=== PATIENT | male | born 1945 | race Caucasian/White ===

== ENCOUNTER 2023-08-03 00:49 | Observation (INO) | payer MEDICARE, OTHER, SELFPAY ==
[2023-08-03 00:56] VITALS: BP 155/91; PULSE 65; TEMP 36.4; O2SAT 100; BMI 25.8
--- NOTE | 2023-08-03 01:17 | ECG_ITS ---
[facility] Test Date: 2023-08-03 Pat Name: CATHY MENDEZ Department: Room: [facility] [place] Gender: Male [employer] Dispatcher: : 1945 Requested By: DAOVN CLARKE Order Number: [id number] Reading MD: RODNEY KEARNEY Measurements Intervals [place] Rate: 63 P: 16 [place]: 198 QRS: 18 QRSD: 100 T: 55 QT: 402 QTc: 410 Interpretive Statements 1100 Sinus rhythm 9110 normal ECG Compared to ECG 04/03/2018 13:10:39 No significant changes Electronically Signed On 08-04-2023 7:30:08 EDT by RODNEY KEARNEY
[2023-08-03 01:20] VITALS: PULSE 62
--- NOTE | 2023-08-03 01:25 | ED.DIZZY1 ---
HPI - Dizziness General Chief Complaint: Dizziness Stated Complaint: DIZZY Time Seen by Provider: 08/03/23 01:22 Source: patient and family Mode of arrival: walk-in Limitations: no limitations History of Present Illness HPI Narrative: past history of vertigo. last episode about 2 years ago. Tonight watching TV and it started spinning .spinning associated with nausea. No headache, ear pain or fever. No numbness or ext. weakness. Still feels somewhat dizzy now Related Data Home Medications ?Medication ?Instructions ?Recorded ?Confirmed valsartan 80 mg tablet 80 mg PO DAILY 08/03/23 08/03/23 Allergies Allergy/AdvReac Type Severity Reaction Status Date / Time No Known Drug Allergies Allergy Verified 08/03/23 01:01 Review of Systems ROS Status of ROS 10 or more systems reviewed and unremarkable except as noted in history and below Exam Constitutional Vital Signs, click to edit/add: Last Vital Signs Temp 97.5 F L 08/03/23 00:56 Pulse 63 08/03/23 04:04 Resp 24 H 08/03/23 04:04 BP 135/79 08/03/23 04:04 Pulse Ox 95 08/03/23 04:04 O2 Del Method Room Air 08/03/23 04:04 Common normals: no apparent distress, average body habitus, oriented x3, no limitations, healthy appearing, alert and well nourished [facility] Common normals: normocephalic and head/scalp atraumatic Eye Common normals: PERRL, EOMs intact bilaterally and conjunctivae normal Respiratory Common normals: normal respiratory effort, no retractions, no use of accessory muscles and clear to auscultation bilaterally Cardio Common normals: regular rate, regular rhythm, S1 normal heart sound and S2 normal heart sound GI Common normals: Normal to inspection, nondistended, normoactive bowel sounds present, soft to palpation and non-tender Extremity Common normals: normal to inspection and full ROM Neuro Common normals: oriented x3, CN's II-XII intact bilaterally, moves all extremities, no focal motor deficits and no sensory deficits noted Psych Appearance: grossly normal Course Vital Signs Vital signs: Vital Signs Temperature 97.5 F L 08/03/23 00:56 Pulse Rate 65 08/03/23 00:56 Respiratory Rate 18 08/03/23 00:56 Blood Pressure 155/91 H 08/03/23 00:56 Pulse Oximetry 100 08/03/23 00:56 Oxygen Delivery Method Room Air 08/03/23 00:56 Temperature 97.5 F L 08/03/23 00:56 Pulse Rate 63 08/03/23 04:04 Respiratory Rate 24 H 08/03/23 04:04 Blood Pressure 135/79 08/03/23 04:04 Pulse Oximetry 95 08/03/23 04:04 Oxygen Delivery Method Room Air 08/03/23 04:04 MDM - Dizziness MDM Narrative Medical decision making narrative: patient presents with acute vertiginous symptoms. Treated with solumedrol, antivert and phenergan without significant improvement. Dizziness improved some but remained nauseated. Zofran added without benefit. Given dose of Ativan and CT brain ordered and demonstrated left mastoid effusion. Patient is feeling better but still a little dizzy. Informed of the CT results. Hospitalist contacted and patient admitted to hospitalist serivce Lab Data Labs: Lab Results 08/03/23 Range/Units 01:12 WBC 6.9 (4.0-11.0) 10^3/uL RBC 4.34 L (4.70-6.10) 10^6/uL Hgb 13.8 L (14.0-18.0) g/dL Hct 41.3 L (42.0-54.0) % MCV 95.2 H (80.0-94.0) fL MCH 31.8 (25.9-34.0) pg MCHC 33.4 (29.9-35.2) g/dL RDW 13.0 (11.0-15.0) % Plt Count 168 (150-450) 10^3/uL MPV 11.0 (9.5-13.5) fL Neut % (Auto) 71.0 (43.0-75.0) % Lymph % (Auto) 18.7 L (20.5-60.0) % [place] % (Auto) 7.8 (1.7-12.0) % Eos % (Auto) 1.6 (0.9-7.0) % Baso % (Auto) 0.6 (0.2-2.0) % Neut # (Auto) 4.9 (1.4-6.5) 10^3/uL Lymph # (Auto) 1.3 (1.2-3.8) 10^3/uL [place] # (Auto) 0.5 (0.3-0.8) 10^3/uL Eos # (Auto) 0.1 (0.0-0.7) 10^3/uL Baso # (Auto) 0.0 (0.0-0.1) 10^3/uL Abs Immat Gran (auto) 0.02 (0.00-0.03) 10^3/uL Imm/Tot Granulo (auto) 0.3 (0.0-0.5) % Sodium 141 (136-145) mmol/L Potassium 3.5 (3.5-5.1) mmol/L Chloride 106 (98-107) mmol/L Carbon Dioxide 29.1 (21.0-32.0) mmol/L Anion Gap 9.4 BUN 29.0 H (7.0-18.0) mg/dL Creatinine 1.10 (0.70-1.30) mg/dL Est GFR ( Amer) >60 (>=60) Est GFR (Non-Af Amer) >60 (>=60) BUN/Creatinine Ratio 26.4 Glucose 112 H (74-106) mg/dL Calcium 9.1 (8.5-10.1) mg/dL Total Bilirubin 0.4 (0.2-1.0) mg/dL AST 13 L (15-37) U/L ALT 20 (16-63) U/L Alkaline Phosphatase 50 (46-116) U/L Total Protein 6.9 (6.4-8.2) g/dL Albumin 4.0 (3.4-5.0) g/dL Globulin 2.9 g/dL Albumin/Globulin Ratio 1.[address] scan - head: Radiologist's impression: ITS Impressions Head CT 08/03/23 03:32 IMPRESSION: 1. No acute intracranial abnormality. 2. Fairly large left mastoid effusion. Electronically authenticated by: KELLY ROSARIO Date: 08/03/2023 04:11 Discharge Plan Discharge Chief Complaint: Dizziness Clinical Impression: Acute mastoiditis of left side, Vertigo Patient Disposition: Admitted as Observation
[2023-08-03 01:35] LABS: Basophils Percent Auto 0.6 % (0.2-2.0); Eosinophils Absolute Auto 0.1 10^3/uL (0.0-0.7); Eosinophils Percent Auto 1.6 % (0.9-7.0); Hematocrit 41.3 % (42.0-54.0); Hemoglobin 13.8 g/dL (14.0-18.0); Immature Granulocytes Abs Auto 0.02 10^3/uL (0.00-0.03); Immature Granulocytes Pct Auto 0.3 % (0.0-0.5); Lymphocytes Absolute Auto 1.3 10^3/uL (1.2-3.8); Lymphocytes Percent Auto 18.7 % (20.5-60.0); Mean Corpuscular HGB Conc 33.4 g/dL (29.9-35.2); Mean Corpuscular Hemoglobin 31.8 pg (25.9-34.0); Mean Corpuscular Volume 95.2 fL (80.0-94.0); Monocytes Absolute Auto 0.5 10^3/uL (0.3-0.8); Monocytes Percent Auto 7.8 % (1.7-12.0); Neutrophils Absolute Auto 4.9 10^3/uL (1.4-6.5); Platelet Count 168 10^3/uL (150-450); Red Blood Count 4.34 10^6/uL (4.70-6.10); White Blood Count 6.9 10^3/uL (4.0-11.0)
[2023-08-03] MEDS: METHYLPREDNISOLONE SOD SUCC PF 125 MG/2 ML VIAL IVP (01:44)
[2023-08-03] MEDS: MECLIZINE HCL 12.5 MG TABLET 25 MG PO (01:44)
[2023-08-03 01:46] LABS: Alanine Aminotransferase 20 U/L (16-63); Albumin Globulin Ratio 1.4; Alkaline Phosphatase 50 U/L (46-116); Anion Gap 9.4; Aspartate Amino Transferase 13 U/L (15-37); BUN Creatinine Ratio 26.4; Bilirubin Total 0.4 mg/dL (0.2-1.0); Calcium 9.1 mg/dL (8.5-10.1); Carbon Dioxide 29.1 mmol/L (21.0-32.0); Chloride 106 mmol/L (98-107); Estimated GFR (African America >60 (>=60); Estimated GFR (Non-African Ame >60 (>=60); Globulin 2.9 g/dL; Glucose 112 mg/dL (74-106); Potassium 3.5 mmol/L (3.5-5.1); Sodium 141 mmol/L (136-145); Total Protein 6.9 g/dL (6.4-8.2)
[2023-08-03] MEDS: PROMETHAZINE HCL 12.5 MG in 0.9 % SODIUM CHLORIDE 50 ML 202 MG IV (02:17)
[2023-08-03 02:33] VITALS: BP 164/79; PULSE 58; O2SAT 100
--- NOTE | 2023-08-03 03:32 | CT_ITS ---
The [address] [address] Patient Name: CATHY MENDEZ MRN: [id number] date: 1945 Sex: M Assigned Patient Location: ER Current Patient Location: ER Accession/Order Number: [id number] Exam Date: 08/03/2023 03:42 Report Date: 08/03/2023 04:11 At the request of: JOYCE HORAN Procedure: CT head/brain wo con EXAM: CT head/brain wo con HISTORY: dizziness COMPARISON: None. TECHNIQUE: Nonenhanced CT imaging the head was performed with sagittal and coronal reconstructions. Dose reduction techniques were achieved by using automated exposure control and/or adjustment of mA and/or kV according to patient size and/or use of iterative reconstruction technique. FINDINGS: No intracranial hemorrhage, edema, mass effect or midline shift is seen. The brain parenchyma, ventricles and extra-axial CSF spaces appear within normal limits. The calvarium and imaged facial bones are intact. The paranasal sinuses are clear. Fairly large left mastoid effusion is noted. Right mastoid air cells are clear. CT/CT head/brain wo con IMPRESSION: 1. No acute intracranial abnormality. 2. Fairly large left mastoid effusion. Electronically authenticated by: KELLY ROSARIO Date: 08/03/2023 04:11
[2023-08-03] MEDS: ONDANSETRON PF 4 MG/2 ML VIAL IV (03:57)
[2023-08-03] MEDS: LORAZEPAM 2 MG/ML VIAL 0.5 MG IV (03:57)
[2023-08-03 04:04] VITALS: BP 135/79; PULSE 63; O2SAT 95
[2023-08-03 06:25] VITALS: BP 138/74; PULSE 63; TEMP 36.4; O2SAT 95; BMI 26.8
--- NOTE | 2023-08-03 08:23 | P.HP_ITS ---
HPI H&P: HPI History of Present Illness Chief complaint: DIZZY MASTOIDITIS VERTIGO Narrative: Patient is a 77 y.o white male with past medical history of HTN, presented to the ER last night with complaints of spinning while watching TV. No fevers or chills or recent illnesses. just felt off balance. Did get nauseated later. No prior history of vertigo, no history of stroke. Patient reports improvement this morning with treatment. ER findings CT showing left mastoiditis, WBC's 6.9, normal vital signs No events overnight, this morning daughter is at bedside, they have debrox at home. Patient was observed walking the robbins with PT, did well. Opioid HPI Opioid Management Most Recent Pain and Opioid Data: Last Pain Assessment 08/03/23 14:00 Last ORT Total Score 0 08/03/23 06:41 Last ORT Risk Category Low Risk 08/03/23 06:41 Review of Systems ROS Narrative ROS: a complete review of systems were reviewed with patient and are positive as below or listed in History of Chief Complaint. General: no fever, chills, night sweats Head: no headache, trauma, visual changes, nausea or vomiting Skin: no reported rashes, itching or sores Eyes: no blurriness of vision Ears: no reported hearing loss, but vertigo Throat: no sore throat, hoarseness, swelling of neck, or tongue pain Heart: no chest pain Lungs: no shortness of breath or cough GI: no diarrhea or vomiting/nausea Urinary: no urinary urgency, frequency or pain Neuro: no numbness or tingling HEM: no bleeding issues or bruising ENDO: no thyroid problems Psych: no anxiety or depression PFSH PFSH Medical History (Updated 08/03/23 @ 16:01 by Cha Larsen DO) Hypertension ?I10 - Essential (primary) hypertension (ICD-10) Family History Father Family history of COPD (chronic obstructive pulmonary disease) Social History Highest level of school completed/degree received: 11th grade Meds Home Medications and Allergies Home Medications ?Medication ?Instructions ?Recorded ?Confirmed ?Type cefdinir 300 mg capsule 300 mg PO BID 7 days #14 caps 06/15/24 Rx fluticasone propionate 50 2 spray intranasal DAILY 7 days 08/03/23 Rx mcg/actuation nasal #16 grams spray,suspension (Flonase Allergy Relief) meclizine 25 mg tablet 25 mg PO TID PRN dizziness #30 tabs 08/03/23 Rx prednisone 20 mg tablet 20 mg PO BID 5 days #10 tabs 08/03/23 Rx valsartan 80 mg tablet 80 mg PO DAILY 08/03/23 08/03/23 History Allergies Allergy/AdvReac Type Severity Reaction Status Date / Time No Known Drug Allergies Allergy Verified 08/03/23 01:01 Exam Narrative Exam Narrative: General: Patient is alert, and oriented to person, place and time with normal affect, proper hygiene Skin: no visible rashes, or ulcers Head: atraumatic, acephalic Eyes: PERRLA, no nystagmus present, conjunctiva clear, no scleral icterus Ears: Cerumen impaction of the left Tympanic Membrane, normal gross auditory acuity Nose: symmetric, no discharge, no maxillary or frontal sinus tenderness Mouth/Throat: no erythema, exudate, or tonsillar enlargement Neck: no masses palpated, normal thyroid, no JVD or audible carotid bruits Heart: Normal rate and rhythm, no murmurs/rubs/gallops Lungs: no audible wheezes, crackles and normal breath sounds all lung pressley Abdomen: Normal audible bowel sounds, no distension, No palpable masses, no o rganomegaly, no rebound/guarding/ or rigidity Musculoskeletal: no swelling bilateral lower extremities Neuro: CN II-X grossly intact Constitutional Vital Signs, click to edit/add: Last Vital Signs Temp 97.5 F L 08/03/23 06:25 Pulse 63 08/03/23 06:25 Resp 16 08/03/23 06:25 BP 138/74 08/03/23 06:25 Pulse Ox 95 08/03/23 06:25 O2 Del Method Room Air 08/03/23 06:25 Results Labs Labs: Short CBC 08/03/23 Range/Units 01:12 WBC 6.9 (4.0-11.0) 10^3/uL Hgb 13.8 L (14.0-18.0) g/dL Hct 41.3 L (42.0-54.0) % Plt Count 168 (150-450) 10^3/uL BMP 08/03/23 01:12 Sodium 141 Potassium 3.5 Chloride 106 Carbon Dioxide 29.1 BUN 29.0 H Creatinine 1.10 Glucose 112 H Calcium 9.1 Liver Function 08/03/23 Range/Units 01:12 Total Bilirubin 0.4 (0.2-1.0) mg/dL AST 13 L (15-37) U/L ALT 20 (16-63) U/L Alkaline Phosphatase 50 (46-116) U/L Albumin 4.0 (3.4-5.0) g/dL Assessment and Plan Assessment and Plan (1) Vertigo: Assessment and Plan: continue meclizine as needed. (2) Acute mastoiditis of left side: Assessment and Plan: continue IV rocephin, will be discharged home today on flonase nasal spray, prednisone 20mg BID x 5 days, and Omnicef 300mg BID x 7 days, also recommended debrox drops to the left ear and re-evaluation next week by PCP. return to the ER with any worsening symptoms. (3) Hypertension: Assessment and Plan: continue home valsartan. Qualifiers: Hypertension type: primary hypertension Qualified Code(s): I10 - Essential (primary) hypertension Plan patient is a full code patient is in observation status and expected discharge home later today after PT evaluation.
[2023-08-03] MEDS: LOSARTAN POTASSIUM 25 MG TABLET 50 MG PO (09:45)
[2023-08-03] MEDS: CEFTRIAXONE 1,000 MG in 0.9 % SODIUM CHLORIDE 50 ML 100 MG IV (09:45)
[2023-08-03] MEDS: 0.9 % SODIUM CHLORIDE 250 ML 10 ML IV (09:45)
[2023-08-03 09:51] VITALS: BP 127/77; PULSE 63; TEMP 36.3; O2SAT 90
--- NOTE | 2023-08-03 16:04 | P.DS_ITS ---
DS: Providers Provider Date of admission: 08/03/23 06:20 Primary care physician: DAVON CLARKE MD Admitting clinician: Bakari Cortez Consults: 08/03/23 Consult to Abrasive Grader Routine Reason for consult:: Advanced Directives 08/03/23 05:29 Occupational Therapy Eval and Treat Routine Reason for consultation: vertigo Has provider been notified: No Physical Therapy Eval and Treat Routine Reason for consultation: vertigo Has provider been notified: No Attending physician on discharge: Cha Larsen DS: Diagnosis Discharge Diagnosis (1) Vertigo: (2) Acute mastoiditis of left side: (3) Hypertension: Qualifiers: Hypertension type: primary hypertension Qualified Code(s): I10 - Essential (primary) hypertension DS: Summary Hospital Course Hospital Course: please see H&P dated 08/03/23 Status at Discharge Functional status at discharge: independent ambulation Overall status at discharge: patient is progressing back to baseline Time Spent with Patient Time attestation: Total time spent providing and/or coordinating discharge services: Exam Narrative Exam Narrative: please see H&P dated 08/03/23 no changes to exam at the time of discharge Constitutional Vital Signs, click to edit/add: Last Vital Signs Temp 97.4 F L 08/03/23 09:51 Pulse 63 08/03/23 09:51 Resp 18 08/03/23 09:51 BP 127/77 08/03/23 09:51 Pulse Ox 90 L 08/03/23 09:51 O2 Del Method Room Air 08/03/23 09:51 DS: Data Data Completed and Pending Labs on day of discharge: Labs from last 24 hours 08/03/23 01:12 WBC 6.9 RBC 4.34 L Hgb 13.8 L Hct 41.3 L MCV 95.2 H MCH 31.8 MCHC 33.4 RDW 13.0 Plt Count 168 MPV 11.0 Neut % (Auto) 71.0 Lymph % (Auto) 18.7 L [place] % (Auto) 7.8 Eos % (Auto) 1.6 Baso % (Auto) 0.6 Neut # (Auto) 4.9 Lymph # (Auto) 1.3 [place] # (Auto) 0.5 Eos # (Auto) 0.1 Baso # (Auto) 0.0 Abs Immat Gran (auto) 0.02 Imm/Tot Granulo (auto) 0.3 Sodium 141 Potassium 3.5 Chloride 106 Carbon Dioxide 29.1 Anion Gap 9.4 BUN 29.0 H Creatinine 1.10 Est GFR ( Amer) >60 Est GFR (Non-Af Amer) >60 BUN/Creatinine Ratio 26.4 Glucose 112 H Calcium 9.1 Total Bilirubin 0.4 AST 13 L ALT 20 Alkaline Phosphatase 50 Total Protein 6.9 Albumin 4.0 Globulin 2.9 Albumin/Globulin Ratio 1.4 Discharge Plan Discharge Disposition: Home, Self-Care Discharge Medications: New cefdinir 300 mg capsule 300 mg PO BID 7 Days Qty: 14 0RF fluticasone propionate [Flonase Allergy Relief] 50 mcg/actuation spray,suspension 2 spray intranasal DAILY 7 Days Qty: 16 0RF Rx Instructions: administer into each nostril prednisone 20 mg tablet 20 mg PO BID 5 Days Qty: 10 0RF meclizine 25 mg tablet 25 mg PO TID PRN (Reason: dizziness) Qty: 30 0RF Continued valsartan 80 mg tablet 80 mg PO DAILY Activity: increase activity as tolerated Diet: advance to your usual diet Print Language: Belgian Patient Instructions: Prednisone (By mouth), Meclizine (By mouth), Cefdinir (By mouth), Fluticasone (Into the nose), Mastoiditis (DC) Forms: Portal Instructions Follow Up Appointments: call Dr. Clarke's office on Saturday for follow up within the week Discharge Date/Time: 08/03/23 14:52
--- NOTE | 2023-08-05 09:01 | SWNOTE1 ---
Pt was here on the weekend, 08/03/23, SW was not in on the weekend. SW was not able to address advanced directives with pt.
--- NOTE | 2023-08-05 15:29 | CM.DCFOLLOWU ---
1st attempt 08/05/23, no answer
--- NOTE | 2023-08-06 15:15 | CM.DCFOLLOWU ---
Person spoke with:grand-daughter How are you feeling? feeling a little worse How is your pain? alright Did you understand your discharge instructions? yes Do you have any questions about your discharge instructions? no Were you given any prescriptions at discharge? yes Were you able to get your prescriptions filled? yes Do you understand how to take your medications as ordered? yes Do you have any questions about your follow up appointment and do you plan to keep your follow up appointment? no questions, at follow up right now Is there anything else that you would like to discuss? no Questions/Comments/Concerns/Other: no
== END 2023-08-03 14:52 | disposition home or self-care (01) ==
LOC: ER 05:26 → MS 06:22
PROVIDERS: Admitting Provider Family Medicine; Emergency Provider Internal Medicine; PCP Internal Medicine; Visit Provider Family Medicine
DX: R42 Dizziness and giddiness (principal); H70.002 Acute mastoiditis without complications, left ear; I10 Essential (primary) hypertension; Z79.899 Other long term (current) drug therapy
CPT/HCPCS: 36415; 70450; 80053; 85025; 87040; 93005; 96365; 96375; 97112; 97161; 97530; 99285; G0378; J0696; J2060; J2250; J2405; J2919

== ENCOUNTER 2024-08-06 14:09 | Outpatient (OUT) | payer MEDICARE, OTHER, SELFPAY ==
--- OUTSIDE RECORDS SUMMARY | 2024-08-06 14:30 | XMS_ITS | CCD ---
Author Organization [facility] Care Team Providers Care Brazing Furnace Operator Name Role Phone DAVON CLARKE Admitting Unavailable DAVON CLARKE Attending Unavailable DAVON CLARKE Primary Care Unavailable DAVON CLARKE Consulting Unavailable LINDA LOUISE Consulting Unavailable DAVON CLARKE Referring Unavailable Contreras AGRAWAL Attending Unavailable DAVON CLARKE JR Primary Care Physician [phone] Allergies Allergy Classification Reported Allergen(s) Allergy Type Date of Onset Reaction(s) Facility (1 source) No Known Medication Allergies; Translations: [No Known Medication Allergies] Propensity to adverse reactions (disorder) [facility] Repository Medications Current Medications Medication Drug Class(es) Dates Sig (Normalized) Sig (Original) finasteride 5 mg oral tablet (1 source) 5-alpha Reductase Inhibitor Start: 07-17-2024 take 1 tablet by mouth once daily finasteride 5 mg Tab 5 mg = 1 tab(s), Oral, Daily, Refills(s) 0 Start Date: 07/17/24 Status: Ordered Repeat number: 1 Multi Vitamins oral tablet (1 source) Start: 12-31-2014 take 1 tablet by mouth once daily Multi Vitamins oral tablet Oral, Daily, Refill(s) 0, Prophylaxis Start Date: 12/31/14 Status: Ordered Repeat number: 1 tamsulosin hydrochloride 0.4 mg oral capsule (1 source) alpha-Adrenergic Clarita Start: 12-29-2014 take 1 capsule by mouth once daily at bedtime tamsulosin 0.4 mg Cap 0.4 mg = 1 cap(s), Oral, Daily, HS, Refills(s) 0, Infection or prophylaxis for antibiotics Start Date: 12/29/14 Status: Ordered Repeat number: 1 valsartan 80 mg oral tablet (1 source) Angiotensin 2 Receptor Clarita Start: 07-17-2024 take 1 tablet by mouth once daily Diovan 80 mg Tab 80 mg = 1 tab(s), Oral, Daily, Refills(s) 0 Start Date: 07/17/24 Status: Ordered Repeat number: 1 Problems Problem Classification Problem Date Documented Da te Episodic/Chronic Calculus of urinary tract (2 sources) History of calculus of kidney; Translations: [Kidney stone] 07-17-2024 Episodic Diverticulosis and diverticulitis (1 source) Diverticulosis of large intestine without perforation or abscess without bleeding; Translations: [DVRTCLOS LG INT NO PERF/ABSC W/O BL] Onset: 03-24-2019 Chronic Essential hypertension (2 sources) Essential (primary) hypertension; Translations: [Hypertensive disorder] Onset: 03-24-2019 07-17-2024 Chronic Hemorrhoids (1 source) Other hemorrhoids; Translations: [OTHER HEMORRHOIDS] Onset: 03-24-2019 Episodic Hyperplasia of prostate (1 source) Benign prostatic hyperplasia 07-17-2024 Chronic Other and unspecified benign neoplasm (1 source) Polyp of colon; Translations: [POLYP OF COLON] Onset: 03-24-2019 Episodic Other and unspecified benign neoplasm (1 source) Benign neoplasm of rectum; Translations: [BENIGN NEOPLASM OF RECTUM] Onset: 03-24-2019 Episodic Other gastrointestinal disorders (1 source) Abnormal feces; Translations: [Other fecal abnormalities] Onset: 08-04-2024 Episodic Other nutritional; endocrine; and metabolic disorders (1 source) Overweight 07-17-2024 Episodic Other nutritional; endocrine; and metabolic disorders (1 source) Overweight in adulthood with body mass index of 25 or more but less than 30 08-04-2024 Episodic Other screening for suspected conditions (not mental disorders or infectious disease) (5 sources) Encounter for screening for malignant neoplasm of colon; Translations: [Stool DNA-based colorectal cancer screening positive] Onset: 03-20-2019 07-17-2024 Episodic Screening and history of mental health and substance abuse codes (1 source) Personal history of nicotine dependence; Translations: [PERSONAL HISTORY OF NICOTINE DEPEND] Onset: 03-24-2019 Episodic Encounters Encounter Date Encounter Type Care Provider Facility Start: 08-04-2024 ambulatory DAVON CLARKE Facility :[facility] Start: 08-04-2024 End: 08-04-2024 Patient encounter procedure Contreras AGRAWAL [facility] [place] Start: 07-07-2024 ambulatory DAVON CLARKE Facility : [facility] Start: 03-20-2019 End: 03-20-2019 Patient encounter procedure DAVON CLARKE Facility:[facility] Procedures Date Procedure Procedure Detail Performing Clinician Start: 03-20-2019 Colonoscopy Contreras NI LL Colonoscopy Contreras NILL Extracorporeal shock wave lithotripsy of calculus of kidney Contreras NILL Hemorrhoidectomy Contreras NIL L left ankle fracture Contreras NILL Immunizations Immunization Date Immunization Notes Care Provider Fa cility 05-19-2020 SARS-CoV-2 (COVID-19 ) mRNA-1273 vaccine Contreras NILL [facility] [place] Comment on above: Result Comment: 2024: [id number] 04-21-2020 SARS-CoV-2 (COVID-19 ) mRNA-1273 vaccine Contreras FLANNERYL [facility] [place] Payers Date Payer Category Payer Private Health Insurance [id number] 2024 Unknown [id number] 2014 Medicare [id number] 2014 Medicare [id number] 1959 Medicare [id number] 1959 Unknown [id number] 1945 Unknown [id number] 1945 Unknown [id number] 1945 Unknown [id number] Social History Date Type Detail Facility Start: 08-04-2024 Tobacco smoking status Ex-smoker (fi nding) [facility] [place] Tobacco smoking status Never [facility] [place] Sexual Orientation [facility] [place] Sex Assigned At Male [facility] Start: 10-06-2009 Sex Male (finding) [facility] Evaluation + Plan note Note Date & Type Note Facility Evaluation + Plan note No data available for this section [facility] [place] Hospital Discharge instructions Note Date & Type Note Facility Hospital Discharge instructions No data available for this section [facility] [place] Progress note Note Date & Type Note Facility Progress note No data available for this section [facility] [place] Summary Purpose Family History No Family History Records FoundNo Family History Records Found No data available for this section Advance Directives No Advanced Directives Records FoundNo Advanced Directives Records Found Procedure Findings Note OPERATIVE NOTE OPERATION SIGIFREDO E: 03-20-19 ANESTHETIC: MAC with mild systolic hypertension, no tachycardia or hypoxemia. INDICATIONS: Screening. HISTORY: The patient is a 73 year-old white male for a screening colonoscopy. No significant symptomatology. Negative family history. The patient was given informed consent, asked not to take antiinflammatories prior to the procedure or aspirin. PREOPERATIVE DIAGNOSIS: Screening colonoscopy. POSTOPERATIVE DIAGNOSIS: 1. Severe transverse colon diverticulosis with stricture. 2. Moderate diverticulosis sigmoid. 3. Small hyperplastic polyps in the rectal ampulla and sigmoid area. BIOPSIES:Times 2 with mild bleeding. Photo documentation obtained. PROCEDURE NAME:Colonoscopy. PROCEDURE: The patient was placed in the left lateral decubitus position. Rectal exam showed no masses, normal prostate. The scope was passed per rectal ampulla, rectosigmoid junction. Multiple diverticula were seen in the sigmoid area, moderate in nature, relatively large size, re (more content not included)... Additional Source Comments (unrecognized sect ion and content) No Status Records FoundNo Status Records Found INFORMATION SOURCE (unrecogn ized section and content) DATE CREATED AUTHOR 04/03/[address] [facility] pital DATE CREATED AUTHOR AUTHOR'S ORGANIZ ATSHANTAL 07/30/2024 Alfred Orozco [facility] Patient Care team informnakiao n (unrecognized section and content) Personnel Name: DAVON CLARKE JR, DO Address: [facility] [place] [address] [employer]: FOR RECORDS PERTAINING TO PATIENTS WHO ARE OR HAVE BEEN ENROLLED IN A CHEMICAL DEPENDENCY/SUBSTANCEABUSE PROGRAM, SOME INFORMATION MAY BE OMITTED. This clinical summary was aggregated from multiple sources. Caution should be exercised in using it in the provision of clinical care. This summary normalizes information from multiple sources, and as a consequence, information in this document may materially change the coding, format and clinical context of patient data. In addition, data may be omitted in some cases. CLINICAL DECISIONS SHOULD BE BASED ON THE PRIMARY CLINICAL RECORDS. [employer] provides no warranty or guarantee of the accuracy or completeness of information in this document.
== END 2024-08-06 14:10 | disposition home or self-care (01) ==
LOC: PST 14:10
PROVIDERS: PCP Internal Medicine; Visit Provider Surgery
DX: Z01.818 Encounter for other preprocedural examination (principal); Z86.0101 Personal history of adenomatous and serrated colon polyps

== ENCOUNTER 2024-10-01 10:10 | Outpatient (OUT) | payer MEDICARE, OTHER, SELFPAY ==
--- OUTSIDE RECORDS SUMMARY | 2024-10-01 10:13 | XMS_ITS | Clinical Summary ---
Author Organization [facility] Address [address] [place] [address] Care Team Providers Care Shed Workers Supervisor Name Role Phone Unavailable Primary Care Provider Unavailabl e Social History Tobacco Use Types Packs/Day Years Used Date Smoking Tobacco: Never Assessed Sex and Gender Information Value Date Recorded Sex Assigned at Not on file Legal Sex Male 7:07 PM EDT Gender Identity Not on file Sexual Orientation Not on file Plan of Treatment Not on file
--- OUTSIDE RECORDS SUMMARY | 2024-10-01 10:21 | XMS_ITS | CCD ---
Author Organization [facility] Care Team Providers Care Functional Analyst Name Role Phone DAVON CLARKE Admitting Unavailable DAVON CLARKE Attending Unavailable DAVON CLARKE Primary Care Unavailable DAVON CLARKE Consulting Unavailable LINDA LOUISE Consulting Unavailable DAVON CLARKE JR Primary Care Physician DAVON CLARKE Referring Unavailable Contreras AGRAWAL Attending Unavailable Allergies Allergy Classification Reported Allergen(s) Allergy Type Date of Onset Reaction(s) Facility (1 source) No Known Medication Allergies; Translations: [No Known Medication Allergies] Propensity to adverse reactions (disorder) [facility] Repository Medications Current Medications Medication Drug Class(es) [...] HISTORY OF NICOTINE DEPEND] Onset: 03-24-2019 Episodic Results Test Name Value Interpretation Reference Range Facil ity Ambulatory Visit Summaryon 0 08-04-2024 Ambulatory Visit Summary Ambulatory Visit Summary CATHY MENDEZ :1945 Visit Date:08/04/2024 Ambulatory Visit Instructions Your Diagnosis Positive colorectal cancer screening using Cologuard test Your Care Team Attending Physician - TANJA BROOKS, Contreras Montesinos Primary Care Physician - DAVON CLARKE JR, DO Referring Physician - DAVON CLARKE JR, DO This Is Your Medications List Contact prescribing physician if questions or concerns finasteride (finasteride 5 mg Tab) multivitamin (Multi Vitamins oral tablet) tamsulosin (tamsulosin 0.4 mg Cap) valsartan (Diovan 80 mg Tab) Procedures Performed Colonoscopy (03/20/2019), Colonoscopy, Colonoscopy, ESWL of kidney, Hemorrhoidectomy, left ankle fracture. Discharge Vitals Heart Rate (Peripheral) 70 Respiratory Rate 16 Blood Pressure 112/66 Height 172.72 cm Height 68 in Weight 85 kg Weight 187.393 lb BMI 28.49 Medications What How Much When Instructions Unchanged finasteride (finasteride 5 mg Tab) 1 Tablets By Mouth Every day Contact prescribing physician if questions or concerns Unchanged multivitamin (Multi Vitamins oral tablet) By Mouth Every day Contact prescribing physician if questions or concerns Unchanged tamsulosin (tamsulosin 0.4 mg Cap) 1 Capsules By Mouth Every day HS Contact prescribing physician if questions or concerns Unchanged valsartan (Diovan 80 mg Tab) 1 Tablets By Mouth Every day Contact prescribing physician if questions or concerns Allergies No Known Allergies No Known Medication Allergies Problems Ongoing - Any problem that you are currently receiving treatment for. BMI 28.0-28.9,adult BPH (benign prostatic hyperplasia) History of nephrolithiasis Hypertension Overweight Positive colorectal cancer screening using Cologuard test Patient Survey You may receive a survey via text or e-mail asking about your office visit. Please share your experience with us by completing your survey. We appreciate your feedback and thank you for choosing us for your care. Normal [facility] Encounters Encounter Date Encounter Type Care Provider Facility Start: 08-04-2024 End: 08-04-2024 ambulatory DAVON CLARKE Facility:[facility] Start: 08-04-2024 End: 08-04-2024 Patient encounter procedure Contreras AGRAWAL [facility] [place] Start: 07-07-2024 ambulatory DAVON CLARKE Facility :[facility] Start: 03-20-2019 End: 03-20-2019 Patient encounter procedure DAVON CLARKE Facility:[facility] Procedures Date Procedure Procedure Detail Performing Clinician Start: 03-20-2019 Colonoscopy Contreras NI LL Colonoscopy Contreras NILL Extracorporeal shock wave lithotripsy of calculus of kidney Contreras NILL Hemorrhoidectomy Contreras NIL L left ankle fracture Contreras NILL Immunizations Immunization Date Immunization Notes Care Provider Fa cility 05-19-2020 SARS-CoV-2 (COVID-19 ) mRNA-1273 vaccine Contreras NILL [facility] Comment on above: Result Comment: 2024: [id number] 04-21-2020 SARS-CoV-2 (COVID-19 ) mRNA-1273 vaccine Contreras NILL [facility] Payers Date Payer Category Payer Private Health Insurance [facility] [id number] 2024 Unknown [id number] 2014 Medicare [id number] 2014 Medicare [id number] 1959 Medicare [id number] 1959 Unknown [id number] 1945 Unknown [id number] 1945 Unknown [id number] [id number] [id number] 1945 Unknown [id number] [id number] [id number] Social History Date Type Detail Facility Start: 08-04-2024 Tobacco smoking status Ex-smoker (fi nding) [facility] Tobacco smoking status Never [facility] Sexual Orientation [facility] Sex Assigned At Male [facility] Start: 10-06-2009 Sex Male (finding) [facility] Clinical Note 08-04-2024 Note Date & Type Note Facility 08-04-2024 Note General Surgery Offi ce/Clinic Note Chief Complaint consultation for positive Cologuard HPI Staff 78 year old male presents on consultation from Dr. Clarke for positive Cologuard. Denies abdominal or rectal pain. No rectal bleeding or change in bowel habits. Denies nausea or vomiting. No unexplained weight loss. Last colonoscopy completed 02/2019 with hyperplastic polyps x 2. No known family history of colon cancer. History of Present Illness 78 yo male with h/o htn, nephrolithiasis, BPH, referred for positive Cologuard; patient denies change in bms or blood in stools, no abd complaints; no abd operations, last colonoscopy 2019 with diverticulosis and removal of hyperplastic polyps from the sigmoid colon and rectum; no asa or NSAID use; no tobacco use; no fmhx of GI malignancy or IBD. Review of Systems PHQ Score Initial Depression Screen Score: 0 SCORE ROS - Provider Constitutional: no fever, no sweats, no weight loss. Eyes: yes glasses, no blurred vision, no visual loss. ENMT: no dentures, no hoarseness, no swallowing difficulties, no hearing loss, no ear infection(s), no nose bleeds. Cardiovascular: normal blood pressure, no chest pain, regular heartbeat, no heart murmur. Respiratory: no shortness of breath, no cough, no asthma, no wheezing. Gastrointestinal: no nausea, no vomiting, no diarrhea, no constipation, no blood in stool, no change in bowel habits, no abdominal pain, no hepatitis. Genitourinary: no kidney stones, no urine infection, no dysuria. Musculoskeletal: no pain, no weakness. Skin: no changing moles, no rash, no skin lumps. Neurologic: no seizures, no epilepsy, no headache. Psychiatric: no emotional or psychiatric problem. Heme/Lymph: no bleeding problems, no anemia, no blood clots, no transfusions. Allergy/Immunologic: no swollen lymph nodes/glands, no IV drug abuse. Other: Additional ROS info: Except as noted in the above Review of Systems and in the History of Present Illness, all other systems have been reviewed and are negative or noncontributory. Physical Exam Vitals & Measurements HR: 70(Peripheral) RR: 16 BP: 112/66 HT: 172.72 cm HT: 68 in WT: 85 kg WT: 187.393 lb BMI: 28.49 HEENT: normal conjunctiva, sclera clear, no scleral icterus, EOM intact, PERRLA, oral mucosa moist without lesions. Neck: trachea midline, no mass, symmetric, no thyromegaly or nodules, no adenopathy Respiratory: lungs CTA, respirations non labored. Cardiovascular: regular rate and rhythm, no murmur, no pedal edema or varicosities. Gastrointestinal: soft, non distended, no tenderness, no masses, no palpable hernias, diastasis recti no, no hepatosplenomegaly; normal bs Lymphatic: no cervical adenopathy, no supraclavicular adenopathy. Musculoskeletal: normal gait, digits and nails without infection, nodes, cyanosis, clubbing. Skin: no rashes, no lesions, no ulcers, no subcutaneous nodules, induration. Psychiatric/Neuro: oriented to time, place, person, judgement normal, affect appropriate for age, insight intact, no focal deficits. Tests: labs reviewed, review of old records completed , Discussed surgical options, risks, and possible complications with patient. Assessment/Plan 1. Positive colorectal cancer screening using Cologuard test (R19.5: Other fecal abnormalities) plan colonoscopy under anesthesia, informed consent obtained. Follow-up No qualifying data available Problem List/Past Medical History Ongoing BMI 28.0-28.9,adult BPH (benign prostatic hyperplasia) History of nephrolithiasis Hypertension Overweight Positive colorectal cancer screening using Cologuard test Historical No qualifying data Procedure/Surgical History Colonoscopy (03/20/2019), Colonoscopy, Colonoscopy, ESWL of kidney, Hemorrhoidectomy, left ankle fracture. Medications Diovan 80 mg Tab, 80 mg= 1 tab(s), Oral, Daily finasteride 5 mg Tab, 5 mg= 1 tab(s), Oral, Daily Multi Vitamins oral tablet, Oral, Daily tamsulosin 0.4 mg Cap, 0.4 mg= 1 cap(s), Oral, Daily Allergies No Known Allergies No Known Medication Allergies Social History Alcohol - Denies Alcohol Use, 08/04/2024 Substance Abuse - Denies Substance Abuse, 12/29/2014 Tobacco - Denies Tobacco Use, 12/29/2014 Former smoker, quit more than 30 days ago Tobacco Use:. Never Smokeless Tobacco Use:. Cigarettes, 1.5 per day. Started age 15.0 Years. Stopped age 38 Years., 08/04/2024 Family History COPD: Father. Dementia: Mother. Heart disease: Mother. Immunizations Vaccine Date Status Comments SARS-CoV-2 (COVID-19) mRNA-1273 vaccine 05/19/2020 Recorded 2024-07-17: [id number] SARS-CoV-2 (COVID-19) mRNA-1273 vaccine 04/21/2020 Recorded [facility] Comment on above: Result Comment: Elec tronically Signed By: TANJA BROOKS, Contreras Valadez\Date and Time Signed: 08/04/24 14:52 EDT Evaluation + Plan note Note Date & Type Note Facility Evaluation + Plan note No data available for this section [facility] [place] [facility] Discharge instructions Note Date & Type Note Facility Hospital Discharge instructions No data available for this section [facility] Progress note Note Date & Type Note Facility Progress note No data available for this section [facility] Summary Purpose Family History No Family History Records Found No data available for this section No Family History Records Found Advance Directives No Advanced Directives Records FoundNo [...] and content) DATE CREATED AUTHOR 04/03/2019 [facility] DATE CREATED AUTHOR AUTHOR'S ORGANIZ ATION 08/07/2024 [facility] Patient Care team informatio n (unrecognized section and content) Personnel Name: DAVON CLARKE JR, DO Address: [address] [place] [address]. [place] [address] [employer]: FOR RECORDS PERTAINING TO PATIENTS WHO [...] BE BASED ON THE PRIMARY CLINICAL RECORDS. [employer] provides no warranty or guarantee of the accuracy or completeness of information in this document.
== END 2024-10-01 10:11 | disposition home or self-care (01) ==
LOC: PST 10:10
PROVIDERS: PCP Internal Medicine; Visit Provider Surgery
DX: Z01.818 Encounter for other preprocedural examination (principal); Z86.0101 Personal history of adenomatous and serrated colon polyps

== ENCOUNTER 2024-10-14 07:00 | Day surgery (SDC) | payer MEDICARE, OTHER, SELFPAY ==
--- NOTE | 2024-10-14 | OP_ITS ---
OPERATION DATE: 10/14/2024 PREOPERATIVE DIAGNOSIS: Positive Cologuard. POSTOPERATIVE DIAGNOSIS: 4 mm and 2 mm ascending colon polyps, as well as severe sigmoid diverticulosis. PROCEDURE: Colonoscopy to cecum with cold snare polypectomy x1 and cold biopsy forceps polypectomy x1 for adjacent ascending colon polyps. SURGEON: Contreras Puri M.D. ANESTHESIA: Monitored anesthesia care. ESTIMATED BLOOD LOSS: Less than 1 mL. INDICATIONS AND CONSENT: Patient is a 78-year-old male with a recent positive Cologuard. He did have a normal colonoscopy in 2019. Indications, risks, benefits, alternatives of proceeding with colonoscopy were explained extensively to the patient, including the risks of bleeding, colon perforation or anesthetic complications. All of his questions were answered. Informed consent was obtained. PROCEDURE: Patient brought to the operating room, placed in the left lateral decubitus position. Monitored anesthesia care was provided. Rectal exam was performed which showed no masses or blood. The scope was inserted into the anal canal. Under direct visualization was advanced. With the aid of abdominal compression, it was advanced to the cecum where cecal markings were clearly identified. There was noted to be a good prep. Upon withdrawal of the scope, mucosal surfaces were carefully examined. Within the ascending colon, there was noted to be a 4 mm sessile polyp that was removed with cold snare with good hemostasis. Adjacent to this was a 2 mm sessile polyp that was removed with cold biopsy forceps with good hemostasis. There were no other mass lesions or polyps. There was severe sigmoid diverticulosis without inflammatory changes or scarring. The scope was retroflexed in the anal canal. There was no significant hemorrhoidal disease. The scope was then withdrawn. Patient tolerated procedure well, was sent to recovery room in good condition. follow up surveillance colonoscopy likely in 5 years, but will depend on the pathology report. CC: Ward Lowery D.O. MICHAEL
--- OUTSIDE RECORDS SUMMARY | 2024-10-14 07:02 | XMS_ITS | CCD ---
Author Organization [facility] Care Team Providers Care Civil Engineer [employer] Name Role Phone DAVON CLARKE Admitting Unavailable [...] Medication Allergies] Propensity to adverse reactions (disorder) [facility] Repository Medications Current Medications Medication Drug [...] for choosing us for your care. Normal [facility] Encounters Encounter Date Encounter Type Care Provider Facility Start: 08-04-2024 End: 08-04-2024 ambulatory DAVON CLARKE Facility:[facility] Start: 08-04-2024 End: 08-04-2024 Patient encounter procedure Contre[facility] AGRAWAL [facility] Start: 07-07-2024 ambulatory DAVON CLARKE Facility :[facility] Start: 03-20-2019 End: 03-20-2019 Patient encounter procedure DAVON CLARKE Facility:[facility] Procedures Date Procedure Procedure Detail Performing Clinician Start: 03-20-2019 Colonoscopy Contreras NI LL Colonoscopy Contreras NILL Extracorporeal shock wave lithotripsy of calculus of kidney Contreras NILL Hemorrhoidectomy Contreras NIL L left ankle fracture Contreras NILL Immunizations Immunization Date Immunization Notes Care Provider Fa cility 05-19-2020 SARS-CoV-2 (COVID-19 ) mRNA-1273 vaccine Contreras NILL [facility] Comment on above: Result Comment: 2024: TPV70 04-21-2020 SARS-CoV-2 (COVID-19 ) mRNA-1273 vaccine Contreras NILL [facility] Payers Date Payer Category Payer Private Health Insurance [facility] [id number] 2024 Unknown [id number] 2014 Medicare [id number] 2014 Medicare [id number] 1959 Medicare [id number] 1959 Unknown [id number] 1947 Unknown [id number] 1945 Unknown [id number] 1945 Unknown [id number] Social History Date Type Detail Facility Start: 08-04-2024 Tobacco smoking status Ex-smoker (fi nding) [facility] Tobacco smoking status Never [facility] Sexual Orientation [facility] Sex Assigned At Male [facility] Start: 10-06-2009 Sex Male (finding) [facility] Clinical Note 08-04-2024 Note Date & Type [...] TPV70 SARS-CoV-2 (COVID-19) mRNA-1273 vaccine 04/21/2020 Recorded [facility] Comment on above: Result Comment: Elec tronically Signed By: TANJA BROOKS, Contreras Valadez\Date and Time Signed: 08/04/24 14:52 EDT Evaluation + Plan note Note Date & Type Note Facility Evaluation + Plan note No data available for this section [facility] Discharge instructions Note Date & Type Note Facility Hospital Discharge instructions No data available for this section [facility] Progress note Note Date & Type Note Facility Progress note No data available for this section [facility] Summary Purpose Family History No Family [...] DATE CREATED AUTHOR AUTHOR'S ORGANIZ ATION 08/07/2024 [facility] Patient Care team informatio n (unrecognized section and content) Personnel Name: DAVON CLARKE JR, DO Address: [address] [place] [address]. [place] [address] [employer]: FOR RECORDS PERTAINING TO PATIENTS WHO [...] BE BASED ON THE PRIMARY CLINICAL RECORDS. [email or web address] provides no warranty or guarantee of the accuracy or completeness of information in this document.
[2024-10-14 07:22] VITALS: BP 164/80; PULSE 64; TEMP 36.2; O2SAT 97; BMI 25.8
[2024-10-14 08:40] VITALS: BP 102/64; PULSE 63; TEMP 36.2; O2SAT 96
[2024-10-14 08:55] VITALS: BP 107/69; PULSE 62; O2SAT 98
[2024-10-14 09:10] VITALS: BP 141/75; PULSE 58; O2SAT 99
[2024-10-14 09:25] VITALS: BP 134/94; PULSE 55; O2SAT 98
== END 2024-10-14 09:25 | disposition home or self-care (01) ==
LOC: SURGOUT 07:00
PROVIDERS: PCP Internal Medicine; Visit Provider Surgery
PROC: (CPT 45380; principal; 2024-10-14 08:00)
DX: R19.5 Other fecal abnormalities (principal); Z86.0101 Personal history of adenomatous and serrated colon polyps; K57.30 Diverticulosis of large intestine without perforation or abscess without bleeding; D12.2 Benign neoplasm of ascending colon; N40.0 Benign prostatic hyperplasia without lower urinary tract symptoms; Z87.442 Personal history of urinary calculi; Z87.891 Personal history of nicotine dependence
CPT/HCPCS: 45380; 45385; 88305; J2704